=== PATIENT | female | born 1955 | race African-American/Black ===

== ENCOUNTER 2024-10-11 11:31 | Emergency (ER) | payer MEDICARE, OTHER ==
[~2024-10-11] VITALS: Ht 165.1 cm; Wt 77.3 kg
[2024-10-11 12:13] VITALS: PULSE 75; RESP 19; O2SAT 96
[2024-10-11] MEDS: hydrALAZINE HCL 10 MG TAB PO ONE ×2 (12:30→12:31)
--- NOTE | 2024-10-11 13:34 | ED.PDOC ---
History of Present Illness HPI Comments 68 y.o female presents to the ED for an evaluation of HBP. Patient reports she drove down to her PCP office to get routine blood work done, as she drove back up she felt anxious, noticed the puncture site where blood was taken began to bleed out and she ended up pulling over to a medical office. Patient reports at the time she got off her car to seek assistance, she was feeling dizzy and had a generalized headache. Staff on scene called 911 and was taken to the ED. At this time, patient is asymptomatic and no longer feels anxious. Upon ED arrival, patient's blood pressure read 179/105. Patient is compliant with HTN medication and took ti today as well. Patient is on Plavix and ASA. Chief Complaint: High Blood Pressure Time Seen by MD: 13:24 Reviewed Notes: Nurses Notes, Medications, Allergies Allergies: Coded Allergies: NO KNOWN ALLERGIES (Unverified , 10/11/24) Information Source: Patient Mode of Arrival: Wheelchair Severity: Moderate Timing: Hours Duration: Since onset Past Medical History PAST MEDICAL HISTORY: HTN Surgical History: Denies all surgeries OIL EXPELLER History: No Pertinent OIL EXPELLER History Family History Family History: Reviewed,noncontributory to illness Social History Smoker: Non-Smoker Alcohol: Denies ETOH Use Drugs: Denies Drug Use Lives In: Home Constitutional: denies: chills, diaphoresis, fatigue, fever, malaise, sweats, weakness, others EENTM: denies: blurred vision, double vision, ear bleeding, ear discharge, ear drainage, ear pain, ear ringing, eye pain, eye redness, hearing loss, mouth pain, mouth swelling, nasal discharge, nose bleeding, nose congestion, nose pain, photophobia, tearing, throat pain, throat swelling, voice changes, others Respiratory: denies: cough, hemoptysis, orthopnea, SOB at rest, shortness of breath, SOB with excertion, stridor, wheezing, others Cardiovascular: denies: chest pain, dizzy spells, diaphoresis, Dyspnea on exertion, edema, irregular heart beat, left arm pain, lightheadedness, palpitations, PND, syncope, others Gastrointestinal: denies: abdomen distended, abdominal pain, blood streaked bowels, constipated, diarrhea, dysphagia, difficulty swallowing, hematemesis, melena, nausea, poor appetite, poor fluid intake, rectal bleeding, rectal pain, vomiting, others Genitourinary: denies: abnormal vagina bleeding, burning, dyspareunia, dysuria, flank pain, frequency, hematuria, incontinence, pain, , vagina discharge, urgency, others Neurological: reports: dizziness; denies: fainting, headache, left sided numbness, left sided weakness, numbness, paresthesia, pre-existing deficit, right sided numbness, right sided weakness, seizure, speech problems, tingling, tremors, weakness, others Musculoskeletal: denies: back pain, gout, joint pain, joint swelling, muscle pain, muscle stiffness, neck pain, others Integumetry: denies: bruises, change in color, change in hair/nails, dryness, l aceration, lesions, lumps, rash, wounds, others Allergic/Immunocompromised: denies: Difficulty Healing, Frequent Infections, Hives, Itching, others Hematologic/Lymphatic: denies: anemia, blood clots, easy bleeding, easy bruising, swollen glands, others Endocrine: denies: excessive hunger, excessive sweating, excessive thirst, excessive urination, flushing, intolerance to cold, intolerance to heat, unexplained weight gain, unexplained weight loss, others Psychiatric: reports: anxiety; denies: bipolar disorder, depression, hopeless, panic disorder, schizophrenia, sleepless, suicidal, others All Other Systems: Reviewed and Negative Physical Exam General Appearance: No Apparent Distress, Normal HEENT: Normal ENT Inspection, Pharynx Normal, TMs Normal Neck: Full Range of Motion, Non-Tender, Normal, Normal Inspection Respiratory: Chest Non-Tender, Lungs Clear, No Accessory Muscle Use, No Respiratory Distress, Normal Breath Sounds Cardiovascular: No Edema, No JVD, No Murmur, No Gallop, Normal Peripheral Pulses, Regular Rate/Rhythm Breast Exam: Deferred Gastrointestinal: No Organomegaly, Non Tender, No Pulsatile Mass, Normal Bowel Sounds, Soft Genitalia: Deferred Pelvic: Deferred Rectal: Deferred Extremities: No calf tenderness, Normal capillary refill, Normal inspection, Normal range of motion, Non-tender, No pedal edema Musculoskeletal : Apperance: Normal 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 Was a procedure done?: No Differential Dx Considerations may include: Chest pain, shortness a breath, TN, anemia, X-Ray, Labs, Meds, VS Vital Signs Date Time Temp Pulse Resp B/P (MAP) Pulse Ox O2 Delivery O2 Flow Rate FiO2 10/11/24 12:30 179/97 10/11/24 12:13 75 19 96 Room Air* 0 21 10/11/24 12:07 98.5 71 18 179/97 (124) 99 98.5 10/11/24 11:40 98.6 97 16 172/105 (127) 99 Current Medications Medications (Trade) Dose Ordered Sig/Servando Route Start Time Stop Time Status Last Admin Hydralazine HCl (Apresoline Tablet) 10 mg ONCE ONCE PO 10/11/24 12:00 10/11/24 12:10 DC 10/11/24 12:30 X-Ray, Labs, Meds, VS Comment Imaging: X-rays and CT scans were reviewed and interpreted by this provider, imaging shows no fractures and no pathological disease. Pending radiology review. Laboratory: Labs reviewed and interpreted by this provider. No significant abnormalities noted. Patient has prior medical visits reviewed. Med reconciliation performed Vital signs reviewed Time of 1ST Reevaluation: 13:29 Reevaluation 1ST: Unchanged Patient Education/Counseling: Diagnosis, Treatment, Prognosis, Need For Follow Up (Follow up with PCP in the next 2-4 days. Return to emergency department if his symptoms worsened) Family Education/Counseling: No Family Present Departure 1 Departure Time of Disposition: 13:49 Impression: Primary Impression: Elevated blood pressure reading Additional Impression: Anxiety Disposition: 01 HOME / SELF CARE / HOMELESS Condition: Fair Discharged With: Self Critical Care Note Critical Care Time?: No I personally scribed for SHAQ BENZ ([email or web address]) on 10/11/24 at 13:34. Electronically submitted by Sarita Lang ([facility]). SHAQ BENZ Oct 11, 2024 13:34
[2024-10-11 14:10] VITALS: BP 151/88; PULSE 76; RESP 17; TEMP 98.5; O2SAT 99
== END 2024-10-11 14:17 | disposition home or self-care (01) ==
LOC: ER 11:31
DX: R03.0 Elevated blood-pressure reading, without diagnosis of hypertension (principal); F41.9 Anxiety disorder, unspecified

== ENCOUNTER 2025-08-06 15:53 | Emergency (ER) | payer MEDICARE, BC ==
[~2025-08-06] VITALS: Ht 165.1 cm; Wt 68.7 kg
--- NOTE | 2025-08-06 16:59 | DVH ---
CLINICAL INDICATION: left hand pain TECHNIQUE: 3 radiographic views of the left hand were obtained. Comparison: XY L HAND 3V XRAY on DOS: 08/01/25 FINDINGS/IMPRESSION: Injury soft tissues distal phalanx left 3rd digit. 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 Small calcification off the dorsum of the distal interphalangeal joint left 3rd digit. No prior studies for comparison. No fractures no radiopaque foreign bodies.
[2025-08-06] MEDS: LIDOCAINE HCL 1 % PF INJ 2ML AMP IJ ONE (17:10)
--- NOTE | 2025-08-06 19:46 | ED.PDOC ---
History of Present Illness(SKN HPI Comments 69-year-old female presents with a chief complaint of abscess to distal aspect of 3rd digit of left hand. Patient reports being evaluated at urgent care facility for abscess, earlier, this week, and being prescribed her Mupirocin and Clindamycin. She states on having no improvement of symptoms since then. Denies any fever or any further acute symptoms. 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: No Pertinent PIPED POCKET MACHINE OPERATOR History Family History Family History: Reviewed,noncontributory to illness Social History Smoker: Non-Smoker Alcohol: Denies ETOH Use Drugs: Denies Drug Use Lives In: Home All Other Systems: Reviewed and Negative (Comprehensive review of systems are negative for stated in HPI) Physical Exam General Appearance: No Apparent Distress, Normal HEENT: Normal ENT Inspection, Pharynx Normal, TMs Normal Neck: Full Range of Motion, Non-Tender, Normal, Normal Inspection Respiratory: Chest Non-Tender, Lungs Clear, No Accessory Muscle Use, No Respiratory Distress, Normal Breath Sounds Cardiovascular: No Edema, No JVD, No Murmur, No Gallop, Normal Peripheral Pulses, Regular Rate/Rhythm Breast Exam: Deferred Gastrointestinal: No Organomegaly, Non Tender, No Pulsatile Mass, Normal Bowel Sounds, Soft Genitalia: Deferred Pelvic: Deferred Rectal: Deferred Extremities: No calf tenderness, Normal capillary refill, Normal range of motion, Non-tender, No pedal edema, Other (Paronychia to 3rd digit of left hand) Musculoskeletal : Apperance: Normal 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 Was a procedure done?: Yes Sedation Sedation?: No Incision and Drainage Incision and Drainage: Abscess Location Third digit of left hand Anesthetic: Lidocaine (Without epi) Preparation: Betadine, Saline, Other ([place], gauze) Incision and Wound: Other (5 mL of purulent discharge) Informed consent obtained: Yes Risks/benefits/alt described: Yes Notes 11 blade used to go under the finger nail of digit for incision; approximately 5 mL of purulent discharge Differential Diagnosis (INTG) Abscess: Abscess, Bacteremia, Cellulitis X-Ray, Labs, Meds, VS Vital Signs Date Time Temp Pulse Resp B/P (MAP) Pulse Ox O2 Delivery O2 Flow Rate FiO2 08/06/25 16:00 98.1 91 18 139/95 99 98.1 [place] [id number] Ph: [phone] DIAGNOSTIC IMAGING Diagnostic Imaging Report : [id number] Signed PATIENT: MANJINDER LAMB ACCT: [id number] UNIT: [id number] : 1955 LOC: ER ROOM / BED: / AGE / SEX: 69 / F ADM STATUS: REG ER SERVICE 1606 ORDERING PHYSICIAN: DULCE LEW MD PROCEDURE(s): LHAN - L HAND 3V XRAY REASON: left hand pain ORDER NUMBER(s): [id number], ACCESSION NUMBER(s): [id number] CLINICAL INDICATION: left hand pain TECHNIQUE: 3 radiographic views of the left hand were obtained. Comparison: XY L HAND 3V XRAY on DOS: 08/01/25 FINDINGS/IMPRESSION: Injury soft tissues distal phalanx left 3rd digit. 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 Small calcification off the dorsum of the distal interphalangeal joint left 3rd digit. No prior studies for comparison. No fractures no radiopaque foreign bodies. ATED BY: STELLA DOW Jr., DO DICTATED DATE/TIME: 08/06/251656 SIGNED BY: STELLA DOW Jr., DO SIGNED DATE/TIME: 08/06/251656 CC: Time of 1ST Reevaluation: 17:50 Reevaluation 1ST: Unchanged Time of 2ND Reevaluation: 19:43 Reevaluation 2ND: Improved Patient Education/Counseling: Diagnosis, Treatment, Need For Follow Up Family Education/Counseling: No Family Present SEPSIS Sepsis Screen Date sepsis recognized/suspect: Aug 06, 2025 Time Sepsis recognized/suspect: 1603 Recent Procedure: No On Antibiotic Therapy: No Respiratory Rate >20: No Heart Rate >90: No Temp<36 C (96.8 F) or >38.3 C: No SBP <90 or MAP <65 mmHG: No New Acute Mental Status Change: No Is the patient on CPAP, BIPAP,: No Physician Orders L Hand 3v Xray (08/06/25 16:06) Vital Signs Date Time Temp Pulse Resp B/P (MAP) Pulse Ox O2 Delivery O2 Flow Rate FiO2 08/06/25 16:00 98.1 91 18 139/95 99 98.1 Departure 1 Departure Time of Disposition: 19:54 (The patient's paronychia. We will discharge patient home with outpatient follow up) Impression: Primary Impression: Paronychia Disposition: 01 HOME / SELF CARE / HOMELESS Condition: Stable Additional Instructions: Your paronychia was drained in the er today. You should continue to take your regular medications. You should follow up with your regular doctor to ensure you are healing well. Discharged With: Self Critical Care Note Critical Care Time?: No Stability Stability form required: No Heart Score Heart Score: Heart Score Response (Comments) Value History N/A 0 EKG N/A 0 Age N/A 0 Risk Factors N/A 0 Troponin N/A 0 Total 0 I personally scribed for DULCE LEW MD ([email or web address]) on 08/06/25 at 19:46. Electronically submitted by Gael Cherry ([email or web address]). DULCE LEW MD Aug 06, 2025 19:46
[2025-08-06 21:18] VITALS: BP 172/99; PULSE 75; RESP 14; TEMP 98.8; O2SAT 100
== END 2025-08-06 21:23 | disposition home or self-care (01) ==
LOC: ER 15:53
DX: L02.512 Cutaneous abscess of left hand (principal); I10 Essential (primary) hypertension; Z79.899 Other long term (current) drug therapy
CPT/HCPCS: 10060; 73130